=== PATIENT | female | born 1985 | race Hispanic/Latino ===

== ENCOUNTER 2018-08-17 01:50 | Emergency (ER) | payer SELFPAY ==
[2018-08-17] MEDS ORDERED: NA CHLORIDE 0.9% 1,000 ML ONE (02:33)
[2018-08-17 03:24] LABS: Potassium 3.4 mmol/L (3.5-5.1)
[2018-08-17 03:37] LABS: Absolute Lymphocytes (CBC) 1.4 K/uL (0.7-4.9); Absolute Monocytes 0.5 K/uL (0.1-1.3); Absolute Neutrophil 4.2 K/uL (1.8-8.0); Basophils % 0.6 % (0-1.3); Eosinophils % 2.2 % (0-4.4); Lymphocytes % 22.4 % (15.3-44.8); MPV 11.8 fL (7.6-11.3); Monocytes % 7.5 % (3.3-12.3); RBC Red Blood Cell Count 4.23 M/uL (3.86-4.86)
[2018-08-17 03:45] LABS: Urine Blood NEGATIVE (NEG); Urine Glucose NEGATIVE (NEG); Urine Protein NEGATIVE (NEG)
[2018-08-17 03:46] LABS: Urine Bacteria <20 /HPF (<20); Urine Culture Reflex Order NOT NEEDED; Urine RBC NONE SEEN /HPF (NONE SEEN)
--- NOTE | 2018-08-17 05:05 | ER ---
Nurse's Notes [facility] Name: Teresa Yusuf Age: 33 yrs Sex: Female : 1985 Arrival Date: 08/17/2018 Time: 02:10 Bed 16 Private MD: Diagnosis: Palpitations;Dizziness and giddiness Presentation: 08/17 01:50 Presenting complaint: EMS states: Pt was complaining of dizziness, low BP and ea palpitation that started tonight. Pt denies chest pain. Transition of care: patient was not received from another setting of care. Onset of symptoms was August 17, 2018. Risk Assessment: Do you want to hurt yourself or someone else? Patient reports no desire to harm self or others. Initial Sepsis Screen: Does the patient meet any 2 criteria? No. Patient's initial sepsis screen is negative. Does the patient have a suspected source of infection? No. Patient's initial sepsis screen is negative. Care prior to arrival: None. 01:50 Method Of Arrival: EMS: [facility] ea 01:50 Acuity: KIMBERLY 3 ea Triage Assessment: 01:55 General: Appears in no apparent distress. Behavior is calm, cooperative, appropriate ea for age. Pain: Denies pain. EENT: No signs and/or symptoms were reported regarding the EENT system. Neuro: Level of Consciousness is awake, alert, obeys commands, Oriented to person, place, time, situation. Cardiovascular: Patient's skin is warm and dry. Respiratory: Airway is patent Respiratory effort is even, unlabored, Respiratory pattern is regular, symmetrical. GI: Abdomen is non-distended. : No signs and/or symptoms were reported regarding the genitourinary system. Derm: Skin is pink, warm \T\ dry. Musculoskeletal: Circulation, motion, and sensation intact. 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 - Social history:: Smoking status: Patient/guardian denies using tobacco. - Ebola Screening: : No symptoms or risks identified at this time. Screenin:53 Abuse screen: Denies threats or abuse. Nutritional screening: No deficits noted. ea Tuberculosis screening: No symptoms or risk factors identified. Fall Risk None identified. Assessment: 01:50 Reassessment: see triage assessment. ea 02:30 Reassessment: Patient and/or family updated on plan of care and expected duration. Pain ea level reassessed. Patient is alert, oriented x 3, equal unlabored respirations, skin warm/dry/pink. 03:15 Reassessment: Patient and/or family updated on plan of care and expected duration. Pain ea level reassessed. Patient is alert, oriented x 3, equal unlabored respirations, skin warm/dry/pink. 04:25 Reassessment: Patient and/or family updated on plan of care and expected duration. Pain ea level reassessed. Patient is alert, oriented x 3, equal unlabored respirations, skin warm/dry/pink. Vital Signs: 01:55 BP 103 / 71; Pulse 62; Resp 18; Temp 98.0(O); Pulse Ox 100% on R/A; Weight 61.23 kg; ea Height 5 ft. 4 in. (162.56 cm); Pain 0/10; 03:05 BP 100 / 57 Supine; Pulse 59; Pulse Ox 100% ; ea 03:06 BP 101 / 65 Sitting; Pulse 61; Resp 18; Pulse Ox 100% ; ea 04:10 BP 100 / 79 Standing; Pulse 72; Pulse Ox 100% ; ea 05:50 BP 111 / 67; Pulse 60; Resp 18; Pulse Ox 98% on R/A; Pain 0/10; ea 01:55 Body Mass Index 23.17 (61.23 kg, 162.56 cm) ea ED Course: 01:50 Arm band placed on right wrist. ea 01:50 Patient has correct armband on for positive identification. Bed in low position. Call ea light in reach. Side rails up X 1. 02:10 Patient arrived in ED. ds1 02:11 Jose Wne MD is Attending Physician. gs 02:15 Risa Smith, NOELLE is Primary Nurse. ea 02:51 Triage completed. ea 03:43 by me, sent to lab. EKG done, by ED staff, reviewed by Jose Wen MD. ag4 03:44 Urine Microscopic Only Sent. ag4 06:16 No provider procedures requiring assistance completed. IV discontinued, intact, ea bleeding controlled, No redness/swelling at site. Pressure dressing applied. Administered Medications: 03:05 Drug: NS 0.9% 1000 ml Route: IV; Rate: 1 bolus; Site: right antecubital; ea 04:50 Follow up: Response: No adverse reaction; IV Status: Completed infusion; IV Intake: ea 1000ml Intake: 04:50 IV: 1000ml; Total: 1000ml. ea Outcome: 05:04 Discharge ordered by . 06:16 Condition: improved ea 06:16 Discharge instructions given to patient, Instructed on discharge instructions, follow up and referral plans. Demonstrated understanding of instructions, follow-up care. 06:17 Discharged to home ambulatory, with family. ea 06:19 Patient left the ED. ea Signatures: Frances Ribeiro ds1 Risa Smith RN RN ea Starr, Gregory, MD MD gs Guzman, Kendall ag4 Corrections: (The following items were deleted from the chart) 04:38 03:07 BP 100 / 79 Standing; Pulse 72bpm; Pulse Ox 100%; ea ea
--- NOTE | 2018-08-17 05:06 | EDPHYS ---
Physician Documentation [facility] Name: Teresa Yusuf Age: 33 yrs Sex: Female : 1985 Arrival Date: 08/17/2018 Time: 02:10 Bed 16 Private MD: ED Physician Jose Wen HPI: 08/17 05:01 This 33 yrs old Female presents to ER via EMS with complaints of PALPITATIONS. gs 05:01 The patient presents with a history of heart racing. Onset: The symptoms/episode gs began/occurred acutely, this morning. Duration: The patient or guardian reports a single episode, that is now resolved. Modifying factors: The symptoms are aggravated by nothing. The symptoms are alleviated by nothing. Associated signs and symptoms: Pertinent positives: lightheadedness. Severity of symptoms: At their worst the symptoms were moderate in the emergency department the symptoms have resolved. The patient has experienced similar episodes in the past, a few times. 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 - Social history:: Smoking status: Patient/guardian denies using tobacco. - Ebola Screening: : No symptoms or risks identified at this time. ROS: 05:01 All other systems are negative. gs Exam: 05:01 Head/Face: Normocephalic, atraumatic. Eyes: Pupils equal round and reactive to light, gs extra-ocular motions intact. Lids and lashes normal. Conjunctiva and sclera are non-icteric and not injected. Cornea within normal limits. Periorbital areas with no swelling, redness, or edema. ENT: Nares patent. No nasal discharge, no septal abnormalities noted. Tympanic membranes are normal and external auditory canals are clear. Oropharynx with no redness, swelling, or masses, exudates, or evidence of obstruction, uvula midline. Mucous membranes moist. Neck: Trachea midline, no thyromegaly or masses palpated, and no cervical lymphadenopathy. Supple, full range of motion without nuchal rigidity, or vertebral point tenderness. No Meningismus. Chest/axilla: Normal chest wall appearance and motion. Nontender with no deformity. No lesions are appreciated. Cardiovascular: Regular rate and rhythm with a normal S1 and S2. No gallops, murmurs, or rubs. Normal PMI, no JVD. No pulse deficits. Respiratory: Lungs have equal breath sounds bilaterally, clear to auscultation and percussion. No rales, rhonchi or wheezes noted. No increased work of breathing, no retractions or nasal flaring. Abdomen/GI: Soft, non-tender, with normal bowel sounds. No distension or tympany. No guarding or rebound. No evidence of tenderness throughout. Back: No spinal tenderness. No costovertebral tenderness. Full range of motion. Skin: Warm, dry with normal turgor. Normal color with no rashes, no lesions, and no evidence of cellulitis. MS/ Extremity: Pulses equal, no cyanosis. Neurovascular intact. Full, normal range of motion. Neuro: Awake and alert, GCS 15, oriented to person, place, time, and situation. Cranial nerves II-XII grossly intact. Motor strength 5/5 in all extremities. Sensory grossly intact. Cerebellar exam normal. Normal gait. 05:01 Constitutional: The patient appears alert, awake. 05:01 ECG was reviewed by the Attending Physician. Vital Signs: 01:55 BP 103 / 71; Pulse 62; Resp 18; Temp 98.0(O); Pulse Ox 100% on R/A; Weight 61.23 kg; ea Height 5 ft. 4 in. (162.56 cm); Pain 0/10; 03:05 BP 100 / 57 Supine; Pulse 59; Pulse Ox 100% ; ea 03:06 BP 101 / 65 Sitting; Pulse 61; Resp 18; Pulse Ox 100% ; ea 04:10 BP 100 / 79 Standing; Pulse 72; Pulse Ox 100% ; ea 05:50 BP 111 / 67; Pulse 60; Resp 18; Pulse Ox 98% on R/A; Pain 0/10; ea 01:55 Body Mass Index 23.17 (61.23 kg, 162.56 cm) ea MDM: 02:11 Patient medically screened. 05:01 Differential diagnosis: arrythmia, dehydration, stress disorder. Data reviewed: vital gs signs, nurses notes, lab test result(s), EKG. Counseling: I had a detailed discussion with the patient and/or guardian regarding: the historical points, exam findings, and any diagnostic results supporting the discharge/admit diagnosis. Response to treatment: the patient's symptoms have resolved after treatment, and as a result, I will discharge patient. 08/17 02:13 Order name: Urine Microscopic Only 08/17 02:13 Order name: CBC with Diff 08/17 02:13 Order name: Basic Metabolic Panel 08/17 03:22 Order name: Urine Dipstick--Ancillary (enter results) ct 08/17 03:25 Order name: Basic Metabolic Panel; Complete Time: 03:29 EDMS 08/17 03:40 Order name: CBC with Automated Diff; Complete Time: 05:00 EDMS 08/17 02:13 Order name: Urine Test (obtain specimen); Complete Time: 03:05 08/17 02:13 Order name: Urine Dipstick-Ancillary (obtain specimen); Complete Time: 03:06 08/17 02:13 Order name: EKG - Nurse/Tech; Complete Time: 03:44 08/17 02:13 Order name: Orthostatic Blood Pressure; Complete Time: 03:15 08/17 03:45 Order name: Urine Dipstick-Ancillary; Complete Time: 05:00 EDMS 08/17 03:47 Order name: Urine Microscopic Only; Complete Time: 05:00 EDMS EC:01 Rate is 59 beats/min. Rhythm is regular. ND interval is normal. QRS interval is normal. gs T waves are Flattened. No ST changes noted. Clinical impression: Abnormal EKG without significant change. Interpreted by me. Administered Medications: 03:05 Drug: NS 0.9% 1000 ml Route: IV; Rate: 1 bolus; Site: right antecubital; ea 04:50 Follow up: Response: No adverse reaction; IV Status: Completed infusion; IV Intake: ea 1000ml Disposition: 08/17/18 05:04 Discharged to Home. Impression: Palpitations, Dizziness and giddiness. - Condition is Stable. - Discharge Instructions: Dizziness, Palpitations. - Medication Reconciliation Form, Thank You Letter, Antibiotic Education, Prescription Opioid Use form. - Follow up: Private Physician; When: 2 - 3 days; Reason: Re-evaluation by your physician. Signatures: Dispatcher [facility] Risa Fritz RN RN ea Starr, Gregory, MD MD gs Corrections: (The following items were deleted from the chart) 06:19 05:04 08/17/2018 05:04 Discharged to Home. Impression: Palpitations; Dizziness and ea giddiness. Condition is Stable. Forms are Medication Reconciliation Form, Thank You Letter, Antibiotic Education, Prescription Opioid Use. Follow up: Private Physician; When: 2 - 3 days; Reason: Re-evaluation by your physician. gs
--- NOTE | 2018-08-17 09:18 | EKG ---
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
== END 2018-08-17 06:19 | disposition home or self-care (01) ==
LOC: ER 01:50
DX: R42 Dizziness and giddiness (principal)
CPT/HCPCS: 36415; 80048; 81003; 81015; 85025; 93005; 96360; 96361; 99284; J7030